=== PATIENT | male | born 1965 | race African-American/Black ===

== ENCOUNTER 2021-12-17 10:24 | Day surgery (SDC) | payer OTHER ==
[2021-12-15 12:58] VITALS: BMI 29.5
[2021-12-17] MEDS ORDERED: MIDAZOLAM HCL 2 MG/2 ML SINGLE DOSE VIAL ONE (12:51)
[2021-12-17] MEDS ORDERED: PROPOFOL 20 ML ONE ×2 (12:51)
[2021-12-17] MEDS ORDERED: LIDOCAINE HCL/PF 2% SDV 5ML VIAL ONE (12:52)
[2021-12-17] MEDS ORDERED: DEXAMETHASONE SOD PHOSPHATE 4 MG/1 ML VIAL ONE (12:52)
[2021-12-17] MEDS ORDERED: KETOROLAC TROMETHAMINE 30 MG/1 ML VIAL ONE (12:52)
[2021-12-17] MEDS ORDERED: ceFAZolin SODIUM 1 GM VIAL ONE (12:52)
[2021-12-17] MEDS ORDERED: LIDOCAINE HCL 2% JELLY (5 ML/TUBE) ONE (12:52)
[2021-12-17] MEDS ORDERED: ONDANSETRON 4 MG/2 ML VIAL ONE (12:52)
[2021-12-17] MEDS ORDERED: ONDANSETRON 4 MG/2 ML VIAL IVPUSH PRN (13:54)
[2021-12-17] MEDS ORDERED: PROMETHAZINE HCL 25 MG/1 ML VIAL IVPUSH PRN (13:54)
[2021-12-17] MEDS ORDERED: oxyCODONE HCL 5 MG TABLET PO PRN ×2 (13:54)
[2021-12-17 15:03] VITALS: TEMP 97.6
[2021-12-17 15:48] VITALS: BP 113/78; PULSE 53
== END 2021-12-17 15:35 | disposition home or self-care (01) ==
LOC: FASU 10:24
PROVIDERS: ATTEND Orthopaedic Surgery Sports Medicine
PROC: 0SBD4ZZ Excision of Left Knee Joint, Percutaneous Endoscopic Approach (ICD-10-PCS; 2021-12-17)
PROC: 0SBD4ZZ Excision of Left Knee Joint, Percutaneous Endoscopic Approach (ICD-10-PCS; principal; 2021-12-17 13:19)
DX: S83.242A Other tear of medial meniscus, current injury, left knee, initial encounter (principal); S83.282A Other tear of lateral meniscus, current injury, left knee, initial encounter; X58.XXXA Exposure to other specified factors, initial encounter; Y93.9 Activity, unspecified; Y92.9 Unspecified place or not applicable
CPT/HCPCS: 94760